=== PATIENT | female | born 1995 ===

== ENCOUNTER → 2017-05-10 | Outpatient (REF) | LOC: WSOH 09:55 → WSPT 11:15 | DX: Z02.1 Encounter for pre-employment examination (principal) ==

== ENCOUNTER → 2017-05-12 | Outpatient (REF) | LOC: WSOH 15:00 | DX: Z02.89 Encounter for other administrative examinations (principal) ==

== ENCOUNTER → 2017-05-19 | Outpatient (REF) | LOC: WSOH 14:28 | DX: Z02.89 Encounter for other administrative examinations (principal) ==